=== PATIENT | female | born 1960 ===

== ENCOUNTER 2019-01-07 17:40 | Emergency (ER) | payer MEDICARE ==
--- NOTE | 2019-01-07 17:58 | Event Note ---
ED Screening Note Date of service: 01/07/19 Time: 17:54 ED Screening Note: 58 y/o female comes in for delusion. Hx/o Bipolar, DM Sciz. Recently having SI/HI. This initial assessment/diagnostic orders/clinical plan/treatment(s) is/are subject to change based on patients health status, clinical progression and re- assessment by fellow clinical providers in the ED. Further treatment and workup at subsequent clinical providers discretion. Patient/guardian urged not to elope from the ED as their condition may be serious if not clinically assessed and managed. Initial orders include:
[2019-01-07 18:32] LABS: Basophils # (Auto) 0.1 K/mm3 (0.0-0.1); Basophils % (Auto) 1.1 % (0.0-1.8); Eosinophils # (Auto) 0.1 K/mm3 (0.0-0.4); Eosinophils % (Auto) 0.6 % (0.0-4.3); Hematocrit 42.3 % (30.3-42.9); Hemoglobin 14.5 gm/dl (10.1-14.3); Lymphocytes # (Auto) 2.3 K/mm3 (1.2-5.4); Lymphocytes % (Auto) 21.8 % (13.4-35.0); Mean Corpuscular HGB Conc 34 % (30-34); Mean Corpuscular Volume 92 fl (79-97); Monocytes # (Auto) 0.8 K/mm3 (0.0-0.8); Monocytes % (Auto) 8.1 % (0.0-7.3); Platelet Count 297 K/mm3 (140-440); Red Blood Count 4.62 M/mm3 (3.65-5.03); Red Cell Distribution Width 15.3 % (13.2-15.2)
[2019-01-07 18:57] LABS: Alanine Aminotransferase 9 units/L (7-56); BUN/Creatinine Ratio 13; Blood Urea Nitrogen 9 mg/dL (7-17); Calcium 10.1 mg/dL (8.4-10.2); Hemolysis Index 16
[2019-01-07] MEDS ORDERED: GEODON IM ONE (19:01)
[2019-01-07 20:23] LABS: Bacteria,Urine 1+ /HPF (Negative); Bilirubin,Urine NEG (Negative); Blood,Urine NEG (Negative); Color,Urine Yellow (Yellow); Protein,Urine <15 mg/dL mg/dL (Negative)
[2019-01-07 20:27] LABS: HCG Qualitative,Urine Negative (Negative)
[2019-01-07 20:52] LABS: Amphetamine Screen,Urine PRESUMPTIVE NEGATIVE; Benzodiazepines Screen,Urine PRESUMPTIVE NEGATIVE; Cannabinoid Screen,Urine PRESUMPTIVE NEGATIVE; Cocaine Screen,Urine PRESUMPTIVE NEGATIVE; Methadone Screen,Urine PRESUMPTIVE NEGATIVE; Opiate Screen,Urine PRESUMPTIVE NEGATIVE
--- NOTE | 2019-01-07 21:21 | Emergency Department Report ---
ED Psych HPI - General Chief Complaint: Psych Stated Complaint: MENTAL HEALTH EVAL Time Seen by Provider: 01/07/19 19:00 Source: patient Mode of arrival: Ambulatory - History of Present Illness Initial Comments: Mrs. Britton is a 58 yo female with hx of bipolar disorder and schizoaffective disorder who has had several days of manic behavior and psychosis. Hx obtained from caregiver, newspaper correspondent of personal correction. I reviewed documentation from patient's psychiatrist who recommended inpatient stablization. Mrs. Britton speaks of many subjects including "lodging", "rape". I am unable to follow her conversation. She is evasive when asking of suicidal or homicidal thoughts. MD Complaint: suicidal ideation, other (acute psychosis acute lacey) -: Gradual, days(s) (several days) Associated Psychiatric Symptoms: racing thoughts, auditory hallucinations, visual hallucinations, delusions History of same: Yes Quality: constant Worsens With: medication Context: new medication(s) Associated Symptoms: denies other symptoms - Related Data Home Medications Medication Instructions Recorded Confirmed Last Taken Insulin Regular, Human [Novolin R] 8 unit SUB-Q AMHY 01/07/19 01/07/19 Unknown Januvia 1 tab PO BID 01/07/19 01/07/19 Unknown Lispro Insulin [HumaLOG] 18 unit SQ HS 01/07/19 01/07/19 Unknown Neurontin 2 tab PO HS 01/07/19 01/07/19 Unknown Zyprexa 1 tab PO BID 01/07/19 01/07/19 Unknown Allergies Allergy/AdvReac Type Severity Reaction Status Date / Time No Known Allergies Allergy Verified 01/07/19 17:57 ED Review of Systems ROS: Stated complaint: MENTAL HEALTH EVAL Other details as noted in HPI Comment: All other systems reviewed and negative Constitutional: denies: fever, malaise Cardiovascular: denies: chest pain Gastrointestinal: denies: abdominal pain Psychiatric: auditory hallucinations, homicidal thoughts, suicidal thoughts ED Past Medical Hx - Past Medical History Previous Medical History?: Yes Hx Diabetes: Yes Hx Psychiatric Treatment: Yes (bipolar, schizoaffective disorder) - Social History Smoking Status: Current Every Day Smoker Substance Use Type: Marijuana - Medications Home Medications: Home Medications Medication Instructions Recorded Confirmed Last Taken Type Insulin Regular, Human [Novolin R] 8 unit SUB-Q AMHY 01/07/19 01/07/19 Unknown History Januvia 1 tab PO BID 01/07/19 01/07/19 Unknown History Lispro Insulin [HumaLOG] 18 unit SQ HS 01/07/19 01/07/19 Unknown History Neurontin 2 tab PO HS 01/07/19 01/07/19 Unknown History Zyprexa 1 tab PO BID 01/07/19 01/07/19 Unknown History ED Physical Exam - General Limitations: No Limitations General appearance: alert, in no apparent distress, other (pressured speech circular thought pattern) - Head Head exam: Present: atraumatic, normocephalic - Eye Eye exam: Present: normal appearance - ENT ENT exam: Present: mucous membranes moist - Neck Neck exam: Present: normal inspection, full ROM - Respiratory Respiratory exam: Present: normal lung sounds bilaterally. Absent: respiratory distress, wheezes, rales, rhonchi - Cardiovascular Cardiovascular Exam: Present: regular rate, normal rhythm, normal heart sounds. Absent: systolic murmur, diastolic murmur, rubs, gallop - GI/Abdominal GI/Abdominal exam: Present: soft, normal bowel sounds. Absent: distended, tenderness, guarding, rebound - Extremities Exam Extremities exam: Present: normal inspection - Back Exam Back exam: Present: normal inspection - Neurological Exam Neurological exam: Present: alert, oriented X3, abnormal gait - Psychiatric Psychiatric exam: Present: agitated, anxious, other (pressured speech, d isorganized thought pattern) - Skin Skin exam: Present: warm, dry, intact, normal color. Absent: rash ED Course Vital Signs 01/07/19 01/07/19 17:48 19:30 Temperature 98.1 F 98.2 F Pulse Rate 112 H 83 Respiratory 11 L 18 Rate Blood Pressure 100/62 113/82 [Right] O2 Sat by Pulse 97 97 Oximetry ED Medical Decision Making - Lab Data Result diagrams: 01/07/19 18:06 01/07/19 18:06 Laboratory Results - last 24 hr 01/07/19 01/07/19 01/07/19 17:58 18:06 18:06 WBC 10.3 RBC 4.62 Hgb 14.5 H Hct 42.3 MCV 92 MCH 31 MCHC 34 RDW 15.3 H Plt Count 297 Lymph % (Auto) 21.8 [place] % (Auto) 8.1 H Eos % (Auto) 0.6 Baso % (Auto) 1.1 Lymph # 2.3 [place] # 0.8 Eos # 0.1 Baso # 0.1 Seg Neutrophils % 68.4 Seg Neutrophils # 7.1 Sodium 138 Potassium 4.4 Chloride 100.3 Carbon Dioxide 25 Anion Gap 17 BUN 9 Creatinine 0.7 Estimated GFR > 60 BUN/Creatinine Ratio 13 Glucose 150 H POC Glucose 157 H Calcium 10.1 Total Bilirubin 0.20 AST 14 ALT 9 Alkaline Phosphatase 67 Total Protein 7.2 Albumin 4.0 Albumin/Globulin Ratio 1.3 Urine Color Urine Turbidity Urine pH Ur Specific [place] Urine Protein Urine Glucose (UA) Urine Ketones Urine Blood Urine Nitrite Urine Bilirubin Urine Urobilinogen Ur Leukocyte Esterase Urine WBC (Auto) Urine RBC (Auto) U Epithel Cells (Auto) Urine Bacteria (Auto) Urine HCG, Qual Urine Opiates Screen Urine Methadone Screen Ur Barbiturates Screen Valproic Acid Ur Phencyclidine Scrn Ur Amphetamines Screen U Benzodiazepines Scrn Urine Cocaine Screen U Marijuana (THC) Screen Drugs of Abuse Note 01/07/19 01/07/19 01/07/19 20:00 20:09 Unknown WBC RBC Hgb Hct MCV MCH MCHC RDW Plt Count Lymph % (Auto) [place] % (Auto) Eos % (Auto) Baso % (Auto) Lymph # [place] # Eos # Baso # Seg Neutrophils % Seg Neutrophils # Sodium Potassium Chloride Carbon Dioxide Anion Gap BUN Creatinine Estimated GFR BUN/Creatinine Ratio Glucose POC Glucose Calcium Total Bilirubin AST ALT Alkaline Phosphatase Total Protein Albumin Albumin/Globulin Ratio Urine Color Yellow Urine Turbidity Slightly-cloudy Urine pH 7.0 Ur Specific [place] 1.011 Urine Protein <15 mg/dl Urine Glucose (UA) Neg Urine Ketones Neg Urine Blood Neg Urine Nitrite Neg Urine Bilirubin Neg Urine Urobilinogen 2.0 Ur Leukocyte Esterase Neg Urine WBC (Auto) 2.0 Urine RBC (Auto) 2.0 U Epithel Cells (Auto) 4.0 Urine Bacteria (Auto) 1+ Urine HCG, Qual Negative Urine Opiates Screen Presumptive negative Urine Methadone Screen Presumptive negative Ur Barbiturates Screen Presumptive negative Valproic Acid 70.0 Ur Phencyclidine Scrn Presumptive negative Ur Amphetamines Screen Presumptive negative U Benzodiazepines Scrn Presumptive negative Urine Cocaine Screen Presumptive negative U Marijuana (THC) Screen Presumptive negative Drugs of Abuse Note Disclamer - Medical Decision Making Mrs. Britton presents with acute psychosis and acute lacey. Due to severity of symptoms, I have place patient on involuntary hold 1013 precautions instituted. Awaiting placement. Inpatient psychiatric facility. She required redirection while attempting to leave the ER. However sedation was not needed at this time. Chemical restraint order as needed. Critical Care Time: Yes Critical care time in (mins) excluding proc time.: 40 Critical care attestation.: If time is entered above; I have spent that time in minutes in the direct care of this critically ill patient, excluding procedure time. 40 minutes of critical care time excluding procedures were used in the care of the patient. Patient required multiple assessments and interventions. I review ed the electronic medical record. I spoke with consultants involved in the care of the patient. ED Disposition Clinical Impression: Acute psychosis, Lacey, Bipolar disorder, Schizoaffective disorder Disposition: DC-[id number] OP ADMIT IP TO THIS HOSP Is pt being admited?: No Does the pt Need Aspirin: No Condition: Stable
[2019-01-07] MEDS ORDERED: DESYREL PO ONE (22:21)
[2019-01-08] MEDS ORDERED: GLUCOPHAGE PO SCH (08:00)
--- NOTE | 2019-01-08 09:34 | Consultation ---
History of Present Illness - Reason for Consult Consult date: 01/08/19 Reason for consult: Mental Health Evaluation Requesting physician: BRIEN XIAO - Chief Complaint Chief complaint: "It's about the [facility] [facility]" - History of Present Psychiatric Illness 58 yo AA female with who presented to the ER for acute psychosis. Today the patient is tangent during the assessment. She speak about something referencing a "[facility]." Her answers to questions were not relevant to the topic that was being discussed. Her answers to why she was brought to the ER was not logical. She was able to state that she take Zyprexa and prefer not to take Depakote because the medication "aggravates" her stomach. Overall, the patient isn't a good historian at this time. Medications and Allergies Allergies Allergy/AdvReac Type Severity Reaction Status Date / Time No Known Allergies Allergy Verified 01/07/19 17:57 Home Medications Medication Instructions Recorded Confirmed Last Taken Type Aspirin [Aspirin BABY CHEW TAB] 1 tab PO DAILY 01/07/19 01/07/19 Unknown History Atorvastatin Calcium [Lipitor] 10 mg PO 01/07/19 01/07/19 Unknown History Benztropine [Cogentin] 1 mg PO DAILY 01/07/19 01/07/19 Unknown History Haloperidol Lactate 50 mg IM Q4W 01/07/19 01/07/19 Unknown History Haloperidol Lactate 100 mg IM Q4W 01/07/19 01/07/19 Unknown History Insulin Detemir [Levemir VIAL] 18 unit SUB-Q 01/07/19 01/07/19 Unknown History Lisinopril [Zestril] 5 mg PO QDAY 01/07/19 01/07/19 Unknown History Valproic Acid [DepaKENE] 3 cap PO 01/07/19 01/07/19 Unknown History metFORMIN [Glucophage] 1,000 mg PO BID 01/07/19 01/07/19 Unknown History traZODone [Desyrel] 50 mg PO QHS 01/07/19 01/07/19 Unknown History Active Meds: Active Medications Lisinopril (Zestril) 5 mg PO QDAY [facility] Metformin HCl (Glucophage) 1,000 mg PO BIDDIAB [facility] Last Admin: 01/08/19 08:57 Dose: 1,000 mg Documented by: Trazodone HCl (Desyrel) 50 mg PO QHS [facility] Past psychiatric history - Past Medical History Past Medical History: diabetes Past Surgical History: No surgical history - past Psychiatric treatment and history psychiatric treatment history: Unable to obtain a complete psy hx from the patient. Unable to obtain a fam psy hx. - Social History Social history: other (Reside at a half-way) Mental Status Exam - Vital signs Last Vital Signs Temp 97.3 F L 01/08/19 08:07 Pulse 68 01/08/19 08:07 Resp 18 01/08/19 08:07 BP 108/69 01/08/19 08:07 Pulse Ox 98 01/08/19 08:07 - Exam Narrative exam: MSE: Appearance: calm Behavior: regular eye contact Speech: regular rate and tone Mood: "okay" Affect: flat Thought Process: tangential Thought Content: denies SI/HI's and VH', delusional Motor Activity: sitting up in the bed Cognition: A/O x 3 Insight: poor Judgment: poor Results Result Diagrams: 01/07/19 18:06 01/07/19 18:06 Abnormal lab results 01/07/19 01/07/19 01/07/19 Range/Units 17:58 18:06 18:06 Hgb 14.5 H (10.1-14.3) gm/dl RDW 15.3 H (13.2-15.2) % [place] % (Auto) 8.1 H (0.0-7.3) % Glucose 150 H (65-100) mg/dL POC Glucose 157 H (70-105) 01/08/19 Range/Units 07:34 Hgb (10.1-14.3) gm/dl RDW (13.2-15.2) % [place] % (Auto) (0.0-7.3) % Glucose (65-100) mg/dL POC Glucose 140 H (70-105) All other labs normal. Assessment and Plan Assessment and plan: Impression: Unspecified Psychosis. Today the patient was calm, but tangent during the assessment. UDS is negative. DDx: Schizophrenia, Schizoaffective DO, Bipolar DO with psychosis Recommendation/Plan: CFontinue 1013 and start Zyprexa 5 mg Po HS for psychosis and Cogentin 0.5 mg PO HS for EPS prevention. . Attempted to discuss possible metabolic side effects of Zyprexa with the patient. Dispo: The patient can referred to inpatient psy services. Will staff with Dr Rosita Weber.
[2019-01-08] MEDS ORDERED: ZESTRIL PO SCH (10:00)
[2019-01-08] MEDS ORDERED: COGENTIN PO SCH ×2 (10:00→22:00)
[2019-01-08 15:06] VITALS: BP 102/65
[2019-01-08] MEDS ORDERED: DESYREL PO SCH (22:00)
== END 2019-01-08 15:30 | disposition home or self-care (01) ==
LOC: ED 17:40 → EEVIPCON 17:40 → ED 01-08 15:30
DX: F31.9 Bipolar disorder, unspecified (principal); F25.9 Schizoaffective disorder, unspecified; E11.9 Type 2 diabetes mellitus without complications; F23 Brief psychotic disorder; F17.200 Nicotine dependence, unspecified, uncomplicated; F12.10 Cannabis abuse, uncomplicated; Z79.899 Other long term (current) drug therapy; Z79.4 Long term (current) use of insulin
CPT/HCPCS: 36415; 80053; 80164; 80307; 81001; 81025; 82150; 82962; 83690; 85025

== ENCOUNTER 2019-01-08 10:14 | Inpatient (IN) | payer MEDICARE ==
[2019-01-08] MEDS ORDERED: NEURONTIN 300 MG PO SCH (14:00)
[2019-01-08] MEDS: NEURONTIN PO SCH ×2 (16:55→23:10)
[2019-01-08] MEDS ORDERED: D50W (25GM) Syringe IV PRN (19:47)
[2019-01-08] MEDS ORDERED: ATORVASTATIN CALCIUM 10 MG PO SCH (22:00)
[2019-01-08] MEDS ORDERED: ZYPREXA 5 MG PO SCH (22:00)
[2019-01-08] MEDS: HumuLIN R SUB-Q SCH (23:08)
[2019-01-08] MEDS: LANTUS SUB-Q SCH (23:10)
[2019-01-08] MEDS: DESYREL PO SCH (23:12)
[2019-01-09] MEDS: NEURONTIN PO SCH ×3 (05:41→21:52)
[2019-01-09] MEDS: HumuLIN R SUB-Q SCH ×4 (08:16→21:46)
--- NOTE | 2019-01-09 08:50 | History and Physical Report ---
GP History & Physical - History of Present Illness Date of admission: 01/09/19 Date of Examination: 01/09/19 Reason for Admission: Impaired reality testing, Psychopathology interference, Unable to care for self Chief Complaint: I was brainwashed to believe that I am Fernanda History of Present Illness: The patient is a 58yo old single unemployed AAF with history of Schizoaffective disorder. She resides at a [facility] and was brought to the ED by her care due to being psychotic, disorganized and delusional. In my interview with the patient, she states that her real name is Brigid Griffith, that she is 20 years old and that her real parents are Kwasi and Sandra. She states that she is impersonating Fernanda Bonillaon. She claims to have been brainwashed. She denies SI/HI. She wants to stop taking Valproic acid as she is not able to tolerate it. She is ok taking Haldol liquid, Coral, Zyprexa or Risperidone. She reports that she is on Haldol D and last received the injection on 12/31/18. She endorses smoking Cannabis and denies abusing other substances Legal Status: Voluntary Reaction to Hospitalization: Accepting Substance History - Substance History Drug Use: marijuana Hx Tobacco Use: Yes Tobacco Type: Cigarettes Alcohol Use: Yes (Only socially) Past psychiatric history - Past Medical History Past Medical History: diabetes - past Psychiatric treatment and history Psych: Bipolar, Psychosis, Schizophrenia psychiatric treatment history: Multiple inpatient admissions. No history of suicide attempte Follows up with Dr Mckeon, her outpatient psychiatrist - Social History Social history: single (unemployed, has some College education, lives in a [facility], no legal problems and no access to guns. ) Review of Systems All systems: negative Psychiatric: confusion Results - Results Labs/Vitals: Laboratory Last Values POC Glucose 156 (70-105) H 01/08/19 20:35 Last Vital Signs Temp 97.9 F 01/09/19 07:57 Pulse 76 01/09/19 07:57 Resp 16 01/09/19 07:57 BP 96/67 01/09/19 07:57 Pulse Ox 100 01/09/19 07:57 Physical Examination - Constitutional Vitals: Vital Signs Temp Pulse Resp BP Pulse Ox 97.9 F 76 16 96/67 100 01/09/19 07:57 01/09/19 07:57 01/09/19 07:57 01/09/19 07:57 01/09/19 07:57 Temperature -Last 24 Hours Temperature 97.9 F Temperature 98.0 F General appearance: Present: no acute distress, disheveled - EENT Eyes: Present: PERRL, EOM intact ENT: hearing intact, clear oral mucosa - Neck Neck: Present: supple, normal ROM - Respiratory Respiratory effort: normal Mental Status Exam - Vital signs Last Vital Signs Temp 97.9 F 01/09/19 07:57 Pulse 76 01/09/19 07:57 Resp 16 01/09/19 07:57 BP 96/67 01/09/19 07:57 Pulse Ox 100 01/09/19 07:57 - Exam Orientation: time, place, person Mood: anxious Thought content: delusions Thought Process: Disorganized Perceptions: none Speech: normal rate and pattern Concentration: unable to pay attention Motor activity: restless Level of consciousness: alert Memory: Intact Sleep Symptoms: None Interaction: cooperative Assessment and Plan - Psychiatric problem (1) Schizoaffective disorder Current Visit: No Status: Acute Qualifiers: Schizoaffective disorder type: bipolar Qualified Code(s): F25.0 - Schizoaffective disorder, bipolar type plan to address problem: Patient will be admitted for inpatient psychiatric evaluation, medication adjustment and close monitoring The patient's behavior, mood, sleep and appetite will be closely monitored. Patient will be enrolled in individual and group therapeutic sessions and encouraged to attend. Patient will be provided with a safe and structured environment. Patient's physical health needs will be addressed by the Hospitalist. Social Assessment will be completed and the Compress Trucker will work with patient and family to ensure a suitable and safe disposition Medication adjustment will be made as clinically indicated Depakote discontinued and [place]al 300mg bid started per per patient's request The patient agreed on the treatment plan, understood the risk, benefit, alternative treatment, potential consequence of no treatment, and gave informed consent. Physician Certification - Certification Statement Physician Certification Statement: This is an acknowledgement statement that FERNANDA FINLEY is a 58 year old F who requires inpatient psychiatric admission for treatment which could reasonably be expected to improve the patient's condition for Schizoaffective Estimated period of time patient will need to remain in the hospital: 7 days Plan for post-hospital care: Out-patient care.
[2019-01-09] MEDS: COGENTIN PO SCH (10:07)
[2019-01-09] MEDS: BABY ASPIRIN PO SCH (10:13)
[2019-01-09] MEDS: ESKALITH PO SCH ×2 (10:17→21:53)
[2019-01-09 10:48] LABS: Basophils % (Auto) 0.8 % (0.0-1.8); Eosinophils # (Auto) 0.1 K/mm3 (0.0-0.4); Hematocrit 43.1 % (30.3-42.9); Hemoglobin 14.2 gm/dl (10.1-14.3); Lymphocytes # (Auto) 1.5 K/mm3 (1.2-5.4); Lymphocytes % (Auto) 29.8 % (13.4-35.0); Mean Corpuscular HGB Conc 33 % (30-34); Mean Corpuscular Volume 93 fl (79-97); Monocytes # (Auto) 0.4 K/mm3 (0.0-0.8); Monocytes % (Auto) 7.6 % (0.0-7.3); Platelet Count 271 K/mm3 (140-440); Red Blood Count 4.64 M/mm3 (3.65-5.03); Red Cell Distribution Width 15.3 % (13.2-15.2)
[2019-01-09 11:11] LABS: Alanine Aminotransferase 10 units/L (7-56); Albumin 3.7 g/dL (3.9-5); BUN/Creatinine Ratio 16; Blood Urea Nitrogen 11 mg/dL (7-17); Calcium 9.5 mg/dL (8.4-10.2); Hemolysis Index 80; LDL Cholesterol,Direct 110 mg/dL (50-130)
[2019-01-09 12:56] LABS: Chol/HDL Ratio 4.56 %; HDL Cholesterol 39 mg/dL (40-59)
[2019-01-09] MEDS: LANTUS SUB-Q SCH (21:51)
[2019-01-09] MEDS: DESYREL PO SCH (21:52)
[2019-01-10] MEDS: NEURONTIN PO SCH ×3 (07:34→21:11)
[2019-01-10] MEDS: HumuLIN R SUB-Q SCH ×4 (08:17→21:10)
--- NOTE | 2019-01-10 09:40 | Progress Note ---
Subjective Date of service: 01/10/19 Principal diagnosis: Schizoaffective disorder Subjective Comment: Patient is disorganized, delusional and agitated. She states that she is being brainwashed. She slept through the night. Appetite is fine. She was started on [place] and Depakote was discontinued yesterday. She is compliant with meds and denies side effects. No SI/HI Objective - Criteria for Continued Treatment Criteria for Continued Treatment: Improving Level of Functioning, Reducing Isolative Behaviors, Stablizing Level of Functioning, Improving Emotional/Socia, Decreasing Frequency of Hospitalization - Mental Status Mental Status: Alert - Objective Observation Participation Level: Moderate Assessment and Plan - Patient Problems (1) Schizoaffective disorder Current Visit: No Status: Acute Qualifiers: Schizoaffective disorder type: bipolar Qualified Code(s): F25.0 - Schizoaffective disorder, bipolar type Plan to address problem: Patient will be admitted for inpatient psychiatric evaluation, medication adjustment and close monitoring The patient's behavior, mood, sleep and appetite will be closely monitored. Patient will be enrolled in individual and group therapeutic sessions and encouraged to attend. Patient will be provided with a safe and structured environment. Patient's physical health needs will be addressed by the Hospitalist. Social Assessment will be completed and the Medical Coding Manager will work with patient and family to ensure a suitable and safe disposition Medication adjustment will be made as clinically indicated Depakote discontinued 01/10 Continue [place] 300mg bid Continue Olanzapine 5mg bid Continue Trazodone 50mg qhs The patient agreed on the treatment plan, understood the risk, benefit, alternative treatment, potential consequence of no treatment, and gave informed consent.
[2019-01-10] MEDS: BABY ASPIRIN PO SCH (10:16)
[2019-01-10] MEDS: ESKALITH PO SCH ×2 (10:16→21:11)
[2019-01-10] MEDS: COGENTIN PO SCH (10:16)
[2019-01-10] MEDS: LANTUS SUB-Q SCH (21:10)
[2019-01-10] MEDS: DESYREL PO SCH (21:11)
[2019-01-11] MEDS: NEURONTIN PO SCH ×3 (05:28→21:49)
[2019-01-11] MEDS: HumuLIN R SUB-Q SCH ×4 (07:42→21:47)
[2019-01-11] MEDS: COGENTIN PO SCH (09:28)
[2019-01-11] MEDS: ESKALITH PO SCH ×2 (09:28→21:47)
[2019-01-11] MEDS: BABY ASPIRIN PO SCH (09:28)
--- NOTE | 2019-01-11 18:48 | Progress Note ---
Subjective Date of service: 01/11/19 Principal diagnosis: Schizoaffective disorder Subjective Comment: Patient is calm and pleasantly delusional. She slept through the night. Appetite is fine. She was started on [place] and Depakote was discontinued. She is compliant with meds and denies side effects. No SI/HI Objective - Criteria for Continued Treatment Criteria for Continued Treatment: Improving Level of Functioning, Stablizing Level of Functioning, Improving Emotional/Socia, Decreasing Frequency of Hospitalization - Mental Status Mental Status: Alert - Objective Observation Participation Level: Full Assessment and Plan - Patient Problems (1) Schizoaffective disorder Current Visit: No Status: Acute Qualifiers: Schizoaffective disorder type: bipolar Qualified Code(s): F25.0 - Schizoaffective disorder, bipolar type Plan to address problem: Patient will be admitted for inpatient psychiatric evaluation, medication adjustment and close monitoring The patient's behavior, mood, sleep and appetite will be closely monitored. Patient will be enrolled in individual and group therapeutic sessions and encouraged to attend. Patient will be provided with a safe and structured environment. Patient's physical health needs will be addressed by the Hospitalist. Social Assessment will be completed and the [place] Department Supervisor will work with patient and family to ensure a suitable and safe disposition Medication adjustment will be made as clinically indicated Depakote discontinued 01/10 Continue [place] 300mg bid Continue Olanzapine 5mg bid Continue Trazodone 50mg qhs The patient agreed on the treatment plan, understood the risk, benefit, alternative treatment, potential consequence of no treatment, and gave informed consent.
[2019-01-11] MEDS: DESYREL PO SCH (21:46)
[2019-01-11] MEDS: LANTUS SUB-Q SCH (21:54)
[2019-01-12] MEDS: NEURONTIN PO SCH ×3 (05:47→21:31)
[2019-01-12] MEDS: HumuLIN R SUB-Q SCH ×4 (08:10→21:29)
[2019-01-12] MEDS: COGENTIN PO SCH (09:36)
[2019-01-12] MEDS: BABY ASPIRIN PO SCH (09:36)
[2019-01-12] MEDS: ESKALITH PO SCH ×2 (09:36→21:29)
--- NOTE | 2019-01-12 10:21 | Progress Note ---
Subjective Date of service: 01/12/19 Principal diagnosis: Schizoaffective disorder Subjective Comment: Patient is calm and pleasantly. She denies SI/HI/AVH/Paranoia. She slept through the night. Appetite is fine. She was started on [place] and Depakote was discontinued. She is compliant with meds and denies side effects. She is asking to be discharged. She plans to follow up with her out-patient psychiatrist, Dr. Zambrano and continue her treatment in the out-patient. Objective - Criteria for Continued Treatment Criteria for Continued Treatment: Improving Level of Functioning, Improving Treatment / Medication Compliance, Stablizing Level of Functioning, Improving Emotional/Socia, Decreasing Frequency of Hospitalization - Mental Status Mental Status: Alert - Objective Observation Participation Level: Full Assessment and Plan - Patient Problems (1) Schizoaffective disorder Current Visit: No Status: Acute Qualifiers: Schizoaffective disorder type: bipolar Qualified Code(s): F25.0 - Schizoaffective disorder, bipolar type Plan to address problem: Patient will be admitted for inpatient psychiatric evaluation, medication adjustment and close monitoring The patient's behavior, mood, sleep and appetite will be closely monitored. Patient will be enrolled in individual and group therapeutic sessions and encouraged to attend. Patient will be provided with a safe and structured environment. Patient's physical health needs will be addressed by the Hospitalist. Social Assessment will be completed and the Service Mechanic will work with patient and family to ensure a suitable and safe disposition Medication adjustment will be made as clinically indicated Depakote discontinued 01/10 Continue [place] 300mg bid Continue Olanzapine 5mg bid Continue Trazodone 50mg qhs Check [place] level in am tomorrow. The patient agreed on the treatment plan, understood the risk, benefit, alternative treatment, potential consequence of no treatment, and gave informed consent.
[2019-01-12] MEDS: DESYREL PO SCH (21:29)
[2019-01-12] MEDS: LANTUS SUB-Q SCH (21:30)
[2019-01-13] MEDS: NEURONTIN PO SCH ×2 (05:49→14:23)
[2019-01-13] MEDS: HumuLIN R SUB-Q SCH ×2 (08:23→12:09)
[2019-01-13 08:57] VITALS: BP 143/79
[2019-01-13] MEDS: COGENTIN PO SCH (09:03)
[2019-01-13] MEDS: BABY ASPIRIN PO SCH (09:03)
[2019-01-13] MEDS: ESKALITH PO SCH (09:03)
--- NOTE | 2019-01-13 10:18 | Discharge Summary ---
Providers - Providers Date of Admission: 01/08/19 13:23 Date of discharge: 01/13/19 Attending physician: LOUISA LARIOS MD [facility] Reason for admission: psychotic, disorganized and delusional. Condition: Good Hospital course: The patient was provided inpatient psychiatric treatment with safe and supportive environment, group therapy, individual counseling, psychiatric medication, medication adjustment, adverse effect monitor, medical evaluation, medical treatment, social service assessment, family/social support meeting, placement assessment and psycho-education. The patients mood, anxiety, thoughts, stress management skill, cognition, impulse/anger control, motivation, understanding of disease, compliance to treatment and appreciation on family/social support are improved and stabilized. At the time of discharge, the patient had no suicidal ideas, no homicidal ideas, no aggressive thoughts, no endangering behavior and no debilitating adverse effects. The patient agreed on the treatment plan, understood the risk, benefit, alternative treatment, potential consequence of no treatment, and gave informed consent. The patient was advised to be compliant with medications, not to use drugs and not to drink alcohol. The patient understands that if suicidal ideas, homicidal ideas, or any endangering thoughts arise, the patient should immediately seek for emergent assistance including but not limited to crisis hot line and emergency room. Follow up with out-patient Psychiatrist and PCP within 14 - 21 days of discharge. Disposition: DC-01 TO HOME OR SELFCARE Time spent for discharge: 37 mins Allergies/Adverse Reactions: Allergies No Known Allergies Allergy (Verified 01/07/19 17:57) Vital Signs: Last Vital Signs Temp 97.4 F L 01/13/19 07:43 Pulse 99 H 01/13/19 07:43 Resp 18 01/13/19 07:43 BP 143/79 01/13/19 07:43 Pulse Ox 98 01/13/19 07:43 Last Lab: Laboratory Last Values WBC 5.1 K/mm3 (4.5-11.0) 01/09/19 09:56 RBC 4.64 M/mm3 (3.65-5.03) 01/09/19 09:56 Hgb 14.2 gm/dl (10.1-14.3) 01/09/19 09:56 Hct 43.1 % (30.3-42.9) H 01/09/19 09:56 MCV 93 fl (79-97) 01/09/19 09:56 MCH 31 pg (28-32) 01/09/19 09:56 MCHC 33 % (30-34) 01/09/19 09:56 RDW 15.3 % (13.2-15.2) H 01/09/19 09:56 Plt Count 271 K/mm3 (140-440) 01/09/19 09:56 Lymph % (Auto) 29.8 % (13.4-35.0) 01/09/19 09:56 [place] % (Auto) 7.6 % (0.0-7.3) H 01/09/19 09:56 Eos % (Auto) 2.0 % (0.0-4.3) 01/09/19 09:56 Baso % (Auto) 0.8 % (0.0-1.8) 01/09/19 09:56 Lymph # 1.5 K/mm3 (1.2-5.4) 01/09/19 09:56 [place] # 0.4 K/mm3 (0.0-0.8) 01/09/19 09:56 Eos # 0.1 K/mm3 (0.0-0.4) 01/09/19 09:56 Baso # 0.0 K/mm3 (0.0-0.1) 01/09/19 09:56 Seg Neutrophils % 59.8 % (40.0-70.0) 01/09/19 09:56 Seg Neutrophils # 3.0 K/mm3 (1.8-7.7) 01/09/19 09:56 Sodium 136 mmol/L (137-145) L 01/09/19 09:56 Potassium 4.8 mmol/L (3.6-5.0) 01/09/19 09:56 Chloride 97.7 mmol/L (98-107) L 01/09/19 09:56 Carbon Dioxide 28 mmol/L (22-30) 01/09/19 09:56 15 mmol/L 01/09/19 09:56 BUN 11 mg/dL (7-17) 01/09/19 09:56 0.7 mg/dL (0.7-1.2) 01/09/19 09:56 Estimated GFR > 60 ml/min 01/09/19 09:56 16 % 01/09/19 09:56 Glucose 154 mg/dL (65-100) H 01/09/19 09:56 POC Glucose 188 (70-105) H 01/13/19 07:19 6.4 % (4-6) H 01/09/19 09:56 Calcium 9.5 mg/dL (8.4-10.2) 01/09/19 09:56 0.20 mg/dL (0.1-1.2) 01/09/19 09:56 AST 17 units/L (5-40) 01/09/19 09:56 ALT 10 units/L (7-56) 01/09/19 09:56 67 units/L (35-129) 01/09/19 09:56 7.0 g/dL (6.3-8.2) 01/09/19 09:56 3.7 g/dL (3.9-5) L 01/09/19 09:56 1.1 % 01/09/19 09:56 Triglycerides 206 mg/dL (2-149) H 01/09/19 09:56 Cholesterol 178 mg/dL (50-199) 01/09/19 09:56 110 mg/dL (50-130) 01/09/19 09:56 39 mg/dL (40-59) L 01/09/19 09:56 4.56 % 01/09/19 09:56 - Discharge Diagnoses (1) Schizoaffective disorder Status: Acute Qualifiers: Schizoaffective disorder type: bipolar Qualified Code(s): F25.0 - Schizoaffective disorder, bipolar type Core Measure Documentation - Palliative Care Palliative Care/ Comfort Measures: Not Applicable - Core Measures Any of the following diagnoses?: none Exam - Constitutional Vitals: Temp Pulse Resp BP Pulse Ox 97.4 F L 99 H 18 143/79 98 01/13/19 07:43 01/13/19 07:43 01/13/19 07:43 01/13/19 07:43 01/13/19 07:43 General appearance: Present: no acute distress - EENT Eyes: Present: PERRL, EOM intact ENT: hearing intact, clear oral mucosa - Neck Neck: Present: supple, normal ROM - Respiratory Respiratory effort: normal Plan Activity: no restrictions Weight Bearing Status: Full Weight Bearing Diet: low carbohydrate Follow up with: MIRIAM STERLING MD [Primary Care Provider] - 7 Days Prescriptions: [place] Carbonate [Eskalith] 300 mg PO BID #60 capsule Gabapentin [Neurontin] 300 mg PO Q8HR #90 capsule OLANzapine [ZyPREXA] 5 mg PO BID #60 tablet
[2019-01-13 10:26] LABS: Alanine Aminotransferase 170 units/L (7-56); Albumin 3.9 g/dL (3.9-5); BUN/Creatinine Ratio 19; Blood Urea Nitrogen 13 mg/dL (7-17); Calcium 9.4 mg/dL (8.4-10.2); Hemolysis Index 11
== END 2019-01-13 14:50 | disposition home or self-care (01) | DRG 885 ==
LOC: UNDOADMIN 10:14 → 3A 10:14 → 5A 13:23
PROVIDERS: ADMIT Psychiatry & Neurology Psychiatry; ATTEND Psychiatry & Neurology Psychiatry
DX: F25.0 Schizoaffective disorder, bipolar type (principal); F12.90 Cannabis use, unspecified, uncomplicated; F17.210 Nicotine dependence, cigarettes, uncomplicated; E11.9 Type 2 diabetes mellitus without complications; Z79.84 Long term (current) use of oral hypoglycemic drugs
CPT/HCPCS: 36415; 80053; 80061; 80164; 80178; 80307; 81001; 81025; 82150; 82962; 83036; 83690; 85025; G0378; A9270-GY; J1815